=== PATIENT | female | born 1965 | race African-American/Black ===

== ENCOUNTER → 2019-08-19 | Day surgery (SDC) | payer BC, OTHER ==
[~2019-08-19] MED LIST: FENTANYL CITRATE/PF 100MCG/2 ML INJ ONE; GLYCOPYRROLATE INJ 0.2 MG/ML VIAL ONE; HYOSCYAMINE 0.125 MG TAB ONE; LIDOCAINE HCL 2% LOCAL INJ 5 ML SDV VIAL INJ ONE; MIDAZOLAM HCL 5 MG/ML VIAL ONE; PROPOFOL IV EMULSION 10 MG/ML 20 ML VIAL ONE
[2019-08-19 11:25] VITALS: BP 160/91
--- NOTE | 2019-08-19 12:49 | Operative Report ---
DATE OF PROCEDURE: 08/19/2019 SURGEON: Wade Mandel MD PROCEDURE: EGD with biopsies and colonoscopy with polypectomy. INDICATIONS FOR EGD: Upper abdominal pain, bloating, nausea. INDICATIONS FOR COLONOSCOPY: Mass on ovary, colonoscopy to clear colon prior to REHAB ASSISTANT surgery. MEDICATIONS: The patient was done under MAC. Please see anesthesiologist's note. PROCEDURE IN DETAIL: With the patient in left lateral decubitus position, a flexible fiberoptic Olympus gastroscope was introduced into the esophagus under direct visualization without any difficulty. There was some patchy erythema noted in the distal esophagus. A minute nodule was noted at the GE junction that was biopsied. The scope was then advanced with ease into the stomach. Mucosa overlying the antrum and the body revealed some patchy erythema and low-grade to moderate edema. Biopsies were obtained sent to stain for H. pylori. Pylorus was of normal contour and shape. It was intubated with ease and the scope was advanced all the way to the second portion of the duodenum. Biopsies were obtained from the proximal second portion and then duodenal bulb to rule out sprue. The scope was then withdrawn back into the stomach and retroflexed and mucosa overlying the fundus and cardia appeared to be within normal limits. The scope was then straightened out. It was subsequently withdrawn. The patient tolerated the procedure well. IMPRESSION: 1. Distal esophagitis, mild. 2. Minute nodule, GE junction, biopsied. 3. Gastritis, biopsied. Biopsies sent to stain for Helicobacter pylori. 4. Rule out sprue. PLAN: Follow up histology. Initiate Protonix 40 mg one p.o. q.a.m. a.c. The patient was then turned around. After adequate lubrication of the anal canal, a flexible fiberoptic Olympus colonoscope was inserted into the rectum with ease and advanced all the way to the cecum. It was then withdrawn slowly. Mucosa overlying the cecum, ascending colon, and transverse colon appeared to be within normal limits. An approximately 5 mm polyp was removed per hot snare polypectomy from the descending colon. The sigmoid and rectum appeared to be within normal limits. The scope was then retroflexed into the distal rectum. Small internal hemorrhoids were noted none of which was actively bleeding. The scope was then straightened out. It was subsequently withdrawn. The patient tolerated the procedure well. IMPRESSION: 1. Descending colon polyp, hot snare. 2. Internal hemorrhoids, none actively bleeding. PLAN: Follow up histology. Initiate high-fiber, low-fat diet. Initiate high-fiber supplement. The patient might benefit from a followup colonoscopy in 3 to 5 years. Wade Mandel MD [facility] /[id number] cc: Norma Santos MD
== END | disposition home or self-care (01) ==
LOC: ENDO 08:15
PROVIDERS: ATTEND Internal Medicine Gastroenterology
DX: Z12.11 Encounter for screening for malignant neoplasm of colon (principal); D12.4 Benign neoplasm of descending colon; K29.70 Gastritis, unspecified, without bleeding; K29.80 Duodenitis without bleeding; K21.0 Gastro-esophageal reflux disease with esophagitis; K64.8 Other hemorrhoids; N83.8 Other noninflammatory disorders of ovary, fallopian tube and broad ligament; R74.8 Abnormal levels of other serum enzymes; R00.1 Bradycardia, unspecified; Z01.810 Encounter for preprocedural cardiovascular examination; Z01.812 Encounter for preprocedural laboratory examination; Z11.59 Encounter for screening for other viral diseases; Z68.39 Body mass index [BMI] 39.0-39.9, adult
CPT/HCPCS: 43239; 45385; 87635; 93005; J2001; J2250; J2704; J3010; 45378

== ENCOUNTER → 2019-08-22 | Outpatient (CLI) | payer BC ==
--- NOTE | 2019-08-22 13:33 | Diagnostic Imaging Report ---
EXAM: Right upper quadrant abdominal ultrasound INDICATION: Elevated liver enzymes COMPARISON: None. TECHNIQUE: Transverse and longitudinal images of the right upper quadrant abdomen were obtained FINDINGS: Liver: Size: 13.6 cm in the right midclavicular line, normal Appearance: Normal echogenicity, smooth contour Mass: No focal masses Gallbladder: No gallbladder distension, pericholecystic fluid, wall thickening, stone, or reported sonographic Mendez's sign. Gallbladder wall measures 3 mm. Bile Ducts: Intrahepatic Ducts: No dilatation Extrahepatic Ducts: Common bile duct measures 3 mm Pancreas: Visualized portions of the pancreatic head, neck and proximal body are normal. Kidney: The right kidney measures 8.8 cm without evidence of hydronephrosis or stone. Vessels: Aorta: Visualized portions are normal Inferior Vena Cava: Visualized portions are normal Main Portal Vein: 1.0 cm, normal size with hepatopetal flow. Free Fluid: No ascites or pleural effusion IMPRESSION: Unremarkable right upper quadrant ultrasound. Signed by: Chelsea Coyle MD on 08/22/2019 1:30 PM
== END ==
LOC: US 09:24
PROVIDERS: ATTEND Internal Medicine Gastroenterology
DX: R74.8 Abnormal levels of other serum enzymes (principal)
CPT/HCPCS: 76705

== ENCOUNTER → 2019-09-07 | Day surgery (SDC) | payer BC, OTHER ==
[2019-09-02 12:12] LABS: BASOPHILS % 0.1 % (0.0-1.0); EOSINOPHILS # (AUTO) 0.1 (0.0-0.4); EOSINOPHILS % 0.6 % (0.0-6.0); HEMATOCRIT 43.1 % (34.2-44.1); HEMOGLOBIN 14.5 g/dL (12.0-16.0); LYMPHOCYTES # (AUTO) 2.1 (1.0-3.2); LYMPHOCYTES % 27.1 % (18.0-39.1); MEAN CORPUSCULAR HEMOGLOBIN 33.3 pg (28-32); MEAN CORPUSCULAR HGB CONC 33.6 g/dL (31-35); MEAN CORPUSCULAR VOLUME 99.1 fL (81-99); MONOCYTES # (AUTO) 0.6 (0.2-0.8); MONOCYTES % 7.7 % (4.4-11.3); NEUTROPHILS # (AUTO) 5.1 (2.1-6.9); NEUTROPHILS % 64.2 % (38.7-80.0); PLATELET COUNT 221 x10e3/uL (140-360); RED BLOOD COUNT 4.35 x10e6/uL (3.6-5.1); RED CELL DISTRIBUTION WIDTH 11.5 % (11.7-14.4)
[~2019-09-07] MED LIST changes: +ACETAMINOPHEN 1000 MG/100 ML IV ONE; +BUPIVACAINE HCL 0.5% INJ 30 ML VIAL INJ ONE; +DESFLURANE 240 ML BTL INH ONE; +DEXAMETHASONE SOD PHOS INJ 4 MG/ML VIAL ONE; -GLYCOPYRROLATE INJ 0.2 MG/ML VIAL ONE; -HYOSCYAMINE 0.125 MG TAB ONE; +IOPAMIDOL 300MG/ML 50ML INFUS..BTL IV ONE; +KETOROLAC TROMETHAMINE 30 MG/ML VIAL ONE; +LABETALOL HCL 5 MG/ML 20ML VIAL ONE; +LIDOCAINE 1% W/EPINEPHRINE 20 ML VIAL ONE; +METOCLOPRAMIDE HCL 10 MG/2ML VIAL ONE; +MIDAZOLAM HCL 2 MG/2 ML VIAL ONE; -MIDAZOLAM HCL 5 MG/ML VIAL ONE; +ONDANSETRON HCL INJ 2MG/ML 2ML 2 MG/ML VIAL ONE; +ROCURONIUM BROMIDE 10 MG/ML 5ML VIAL IV ONE; +SUGAMMADEX SODIUM 200 MG/2 ML VIAL IV ONE
--- OUTSIDE RECORDS SUMMARY | 2019-09-07 05:44 | XMS REPORT | Clinical Summary ---
Author Author [facility] Organization [facility] Address Unknown Phone Unavailable Care Team Providers Care Outreach Worker Name Role Phone Asked, No Pcp PCP Unavailable Allergies No Known Allergies Medications No known medications Active Problems Not on file Encounters Care Team Description Date Type Specialty Vinay Diaz MD 04/04/2019 Emergency Emergency Medicine Viral Zabala MD Dizziness (Primary Dx); Bradycardia 01/10/2019 Emergency Emergency Medicine 01/10/2019 Travel after 09/06/2018 Social History Date Tobacco Use Types Packs/Day Years Used Never Smoker Smokeless Tobacco: Never Used Drinks/Week oz/Week Comments Alcohol Use No Sex Assigned at Date Recorded Not on file Industry Job Start Date Occupation Not on file Not on file Not on file Travel End Travel History Travel Start No recent travel history available. 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 OPERATOR Weight 162.6 cm (5' 4") 04/04/2019 3:08 PM SHARPLES MACHINE OPERATOR Height 38.96 04/04/2019 3:08 PM SHARPLES MACHINE OPERATOR Body Mass Index Plan of Treatment Health Maintenance Due Date Last Done Comments CERVICAL CANCER SCREENING 1988 BREAST CANCER SCREENING 2017 COLONOSCOPY SCREENING 2017 SHINGLES VACCINES (#1) 2017 INFLUENZA VACCINE 11/19/2019 Procedures Comments Procedure Name Priority Date/Time Associated Diag nosis ECG 12-LEAD STAT 04/04/2019 3:12 PM SHARPLES MACHINE OPERATOR ESTIMATED GFR STAT 01/10/2019 9:26 AM CDT B NATRIURETIC PEPTIDE STAT 01/10/2019 9:26 AM CDT TROPONIN STAT 01/10/2019 9:26 AM CDT LIPASE LEVEL STAT 01/10/2019 9:26 AM CDT HEPATIC FUNCTION PANEL STAT 01/10/2019 9:26 AM CDT BASIC METABOLIC PANEL STAT 01/10/2019 9:26 AM CDT HC COMPLETE BLD COUNT STAT 01/10/2019 W/AUTO DIFF 9:26 AM CDT ECG 12-LEAD STAT 01/10/2019 9:25 AM CDT URINALYSIS SCREEN AND STAT 01/10/2019 MICROSCOPY, WITH REFLEX 9:24 AM CDT TO CULTURE ECG ED PRELIMINARY Routine 01/10/2019 INTERPRETATION 8:49 AM CDT after 09/06/2018 Results * ECG 12 lead (04/04/2019 3:12 PM SHARPLES MACHINE OPERATOR) Only the most recent of 2 results within the time period is included. Ventricular 62 [facility] rate Atrial rate 62 [facility] MD interval 150 [facility] QRSD interval 92 [facility] QT interval 394 [facility] QTC interval 399 [facility] P axis 1 31 [facility] QRS axis 1 74 [facility] T wave axis 43 [facility] EKG impression Normal sinus rhythm with sinus [facility] MU SE arrhythmia-Cannot rule out Anterior infarct (cited on or before 04-APR-2019)-Abnormal ECG-In automated comparison with ECG of 10-JAN-2019 09:25,-No significant change was found- Specimen Narrative Performed At This result has an attachment that is n ot available. Performing Organization Address City/State/Zipcode Ph one Number H MUSE [address] [place] [address] * Estimated GFR (01/10/2019 9:26 AM CDT) [facility] Estimated GFR >=90 mL/min/1.73 m2 [facility] Comment: [facility] G1 >=90 Normal or high G2 60-89 Mildly decreased G3a 45-59 Mildly to moderately decreased G3b 30-44 Moderately to severely decreased G4 15-29 Severely decreased G5 <15 Kidney failure The eGFR was calculated using the Chronic Kidney Disease Epidemiology Collaboration (CKD-EPI) equation. Interpretation is based on recommendations of the National Kidney Foundation-Kidney Disease Outcomes Quality Initiative (NKF-KDOQI) published in 2014. Specimen Plasma specimen Performing Organization Address City/State/Zipcode Ph one Number [facility] OF [address] [place] [address] PATHOLOGY AND GENOMIC MEDICINE [address] * Troponin (01/10/2019 9:26 AM CDT) [facility] Troponin <0.006 0.000 - 0.040 ng/mL [facility] Comment: [facility] changed methodology effective: HOSPITAL 08/24/2018 at 10:00 am The new method has a 99th percentile cutoff of 0.040 ng/mL Specimen Plasma specimen Performing Organization Address City/[facility] Ph one Number [facility] OF [address] [place] [address] PATHOLOGY AND GENOMIC MEDICINE [address] * CBC with platelet and differential (01/10/2019 9:26 AM CDT) [facility] WBC 6.3 4.2 - 11.0 k/uL [facility] RBC 4.27 4.04 - 5.86 m/uL [facility] HGB 14.2 11.5 - 15.3 g/dL [facility] HCT 43.1 34.0 - 45.0 % [facility] MCV 100.9 (H) 80.0 - 98.0 fL [facility] MCH 33.3 27.0 - 34.0 pg [facility] MCHC 32.9 31.5 - 36.5 g/dL [facility] RDW - SD 43.2 37.0 - 51.0 fL [facility] MPV 11.3 (H) 7.4 - 10.4 fL [facility] Platelet count 215 150 - 400 k/uL [facility] Nucleated RBC 0.00 /100 WBC [facility] Neutrophils 66.0 36.0 - 66.0 % [facility] Lymphocytes 27.5 24.0 - 44.0 % [facility] Monocytes 5.5 0.0 - 6.0 % [facility] Eosinophils 0.6 0.0 - 6.0 % [facility] Basophils 0.2 0.0 - 1.2 % [facility] Immature 0.2 0.0 - 1.0 % [facility] granulocytes [facility] Specimen Blood Performing Organization Address City/[facility] Ph one Number [facility] [place] [address] [place] [address] PATHOLOGY AND GENOMIC MEDICINE [address] * B natriuretic peptide (01/10/2019 9:26 AM CDT) BNP 34 0 - 100 pg/mL [facility] Specimen Blood Performing Organization Address City/[facility] Ph one Number [facility] [place] [address] [place] [address] PATHOLOGY AND GENOMIC MEDICINE [address] * Lipase level (01/10/2019 9:26 AM CDT) Lipase 17 13 - 60 U/L [facility] Specimen Plasma specimen Performing Organization Address City/[facility] Ph one Number [facility] [place] [address] [place] [address] PATHOLOGY AND GENOMIC MEDICINE [address] * Hepatic function panel (01/10/2019 9:26 AM CDT) Albumin 3.9 3.5 - 5.0 g/dL [facility] Total bilirubin 0.5 0.2 - 1.2 mg/dL [facility] Bilirubin <0.2 0.0 - 0.4 mg/dL [facility] direct [facility] Alkaline 119 (H) 0 - 104 U/L [facility] phosphatase [facility] Protein 7.6 6.3 - 8.3 g/dL [facility] ALT 81 (H) 5 - 50 U/L [facility] AST 63 (H) 10 - 35 U/L [facility] Specimen Plasma specimen Performing Organization Address City/[facility] Ph one Number [facility] OF [address] [place] [address] PATHOLOGY AND GENOMIC MEDICINE [facility] [address] * Basic metabolic panel (01/10/2019 9:26 AM CDT) Sodium 141 135 - 150 mEq/L [facility] Potassium 4.0 3.5 - 5.0 mEq/L [facility] Chloride 104 98 - 112 mEq/L [facility] CO2 28 24 - 31 mmol/L [facility] Anion gap 9@ANIO 7 - 15 mEq/L [facility] BUN 11 7 - 18 mg/dL [facility] Creatinine 0.70 0.50 - 0.90 mg/dL [facility] Glucose 101 (H) 65 - 100 mg/dL [facility] Calcium 9.6 8.3 - 10.2 mg/dL [facility] Specimen Plasma specimen Performing Organization Address City/State/[facility] Ph one Number [facility] OF [address] [place] [address] PATHOLOGY AND GENOMIC MEDICINE [facility] [address] * Urinalysis screen and microscopy, with reflex to culture (01/10/2019 9:24 AM CDT) Specimen site Clean catch [facility] Color, UA Straw [facility] Appearance, UA Clear [facility] Specific 1.008 1.001 - 1.035 [facility] gravity, UA [facility] pH, UA 7.0 5.0 - 8.5 [facility] Protein, UA Negative Negative [facility] Glucose, UA Negative Negative [facility] Ketones, UA Negative Negative [facility] Bilirubin, UA Negative Negative [facility] Blood, UA Negative Negative [facility] Nitrite, UA Negative Negative [facility] Urobilinogen, Negative <2.0 [facility] Leukocyte Negative Negative [facility] esterase, UA [facility] Epithelial Many /HPF [facility] cells, [facility] WBC, UA 1 0 - 5 /HPF [facility] RBC, UA <1 0 - 5 /HPF [facility] Bacteria, UA Trace None seen [facility] Yeast, UA None seen [facility] Yeast with None seen [facility] Specimen Urine Performing Organization Address City/State/[facility] Ph one Number [facility] OF [address] [place] [address] PATHOLOGY AND GENOMIC MEDICINE [address] * ECG ED Preliminary Interpretation - Not an Order (01/10/2019 8:49 AM CDT) Narrative Performed At Viral Zabala MD 019 11:10 AM ECG ED Preliminary Interpretation - Not an Order Performed by: Viral Zabala M D Authorized by: Viral Zabala MD ECG reviewed by ED Physician in the abs ence of a compliance director: yes Interpretation: Interpretation: normal Rate: ECG rate: 48 ECG rate assessment: bradycardic Rhythm: Rhythm: sinus bradycardia Ectopy: Ectopy: none QRS: QRS axis: Normal QRS intervals: Normal Conduction: Conduction: normal ST segments: ST segments: Normal T waves: T waves: normal after 09/06/2018 Insurance Type Payer Benefit Subscriber ID Effective Phone Address Plan / Dates Group PPO BCBS BCBS OUT xxxxxxxxxxxx [id number] OF STATE resent Advance Directives For more information, please contact: [phone] 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
--- OUTSIDE RECORDS SUMMARY | 2019-09-07 05:45 | XMS REPORT ---
Author Author [facility] Organization [facility] Address [address] [place] [address] Phone Unavailable Care Team Providers Care Folded Towel Machine Operator Name Role Phone Asked, Pcp No PCP Unavailable JAY KIMBALL Attphys Unavailable Diaz MD, Benigno Mclean Attphys [phone] Vj SOLORIO, Edwin Stratton Attphys [phone] Payers Payer Name Policy Type Policy Number Effective Date Expiration Date S ource BCBSBCBS OUT OF STATExxxxxxxxxxxx2018-PresentPPO xxxxxxxxxxxx 2018 00:00:00 Will Armando Problems This patient has no known problems. Allergies, Adverse Reactions, Alerts This patient has no known allergies or adverse reactions. Social History Social Habit Start Date Stop Date Quantity Comments Source Sex Assigned At [facility] Alcohol intake 2019-01-10 00:00:00 2019-01-10 00:00:00 Current non-drinker of alcohol (finding) Will Armando Smoking Status Start Date Stop Date Source [facility] Medications This patient has no known medications. Vital Signs Vital Name Observation Time Observation Value Comments Source Systolic blood pressure 2019-04-04 21:08:54 145 mm[Hg] Will Armando Diastolic blood pressure 2019-04-04 21:08:54 84 mm[Hg] Will Armando Heart rate 2019-04-04 21:08:54 75 /min Will Armando Body temperature 2019-04-04 21:08:54 36 [place] [facility] Respiratory rate 2019-04-04 21:08:54 24 /min [place] [facility] Oxygen saturation in Arterial blood by Pulse oximetry 2018-04 21:08:54 98 /min Will Armando Body height 2019-04-04 21:08:00 162.6 cm Will Armando Body weight 2019-04-04 21:08:00 102.967 kg Will Armando BMI 2019-04-04 21:08:00 38.96 kg/m2 Will Armando Procedures Procedure Date / Time Performed Performing Clinician Sourc e ECG 12-LEAD 2019-04-04 21:12:54 Vinay Diaz HC COMPLETE BLD COUNT W/AUTO DIFF 2019-01-10 14:26:00 Viral Zabala BASIC METABOLIC PANEL 2019-01-10 14:26:00 Viral Zabala HEPATIC FUNCTION PANEL 2019-01-10 14:26:00 Viral Zabala l Will Armando LIPASE LEVEL 2019-01-10 14:26:00 Viral Zabala on [facility] TROPONIN 2019-01-10 14:26:00 Viral Zabala on [facility] B NATRIURETIC PEPTIDE 2019-01-10 14:26:00 Viral Zabala ESTIMATED GFR 2019-01-10 14:26:00 Viral Zabala on [facility] ECG 12-LEAD 2019-01-10 14:25:27 Viral Zabala on [facility] URINALYSIS SCREEN AND MICROSCOPY, WITH REFLEX TO CULTURE 201 12-27-22 14:24:00 Viral Zabala ECG ED PRELIMINARY INTERPRETATION 2019-01-10 13:49:30 Viral Zabala Plan of Care Planned Activity Planned Date Details Comments Source Future Scheduled Test 2019-11-19 00:00:00 INFLUENZA VACCINE [code = INFLUENZA VACCINE] [facility] Future Scheduled Test 2017 00:00:00 BREAST CANCER SCRE ENING [code = BREAST CANCER SCREENING] [facility] Future Scheduled Test 2017 00:00:00 COLONOSCOPY SCREEN ING [code = COLONOSCOPY SCREENING] [facility] Future Scheduled Test 2017 00:00:00 SHINGLES VACCINES (#1) [code = SHINGLES VACCINES (#1)] [facility] 00:00:00 Screening for bakari gnant neoplasm of cervix (procedure) [code = 039948577] Will Valles t Results Test Description Test Time Test Comments Results Result Comments Source US LIVER 2019-08-22 13:29:00 [facility] [address] [address] Patient Name: BUCKY ANDREA MR #: [id number] : 1965 Age/Sex: 54/F Req #: [id number] Adm Physician: Ordered by: JAY KIMBALL MD Report #: [id number] Location: Room/Bed: Procedure: [id number] US/US LIVER Exam Date: 08/22/19 Exam Time: 1009 REPORT STATUS: Signed EXAM: Right upper quadrant abdominal ultrasound INDICATION: Elevated liver enzymes COMPARISON: None. TECHNIQUE: Transverse and longitudinal images of the right upper quadrant abdomen were obtained FINDINGS: Liver: Size: 13.6 cm in the right midclavicular line, normal Appearance: Normal echogenicity, smooth contour Mass: No focal masses Gallbladder: No gallbladder distension, pericholecystic fluid, wall thickening, stone, or reported sonographic Mendez's sign. Gallbladder wall measures 3 mm. Bile Ducts: Intrahepatic Ducts: No dilatation Extrahepatic Ducts: Common bile duct measures 3 mm Pancreas: Visualized portions of the pancreatic head, neck and proximal body are normal. Kidney: The right kidney measures 8.8 cm without evidence of hydronephrosis or stone. Vessels: Aorta: Visualized portions are normal Inferior Vena Cava: Visualized portions are normal Main Portal Vein: 1.0 cm, normal size with hepatopetal flow. Free Fluid: No ascites or pleural effusion IMPRESSION: Unremarkable right upper quadrant ultrasound. Signed by: Jorge A Sellers MD on 08/22/2019 1:30 PM Dictated By: JORGE A SELLERS MD 1330 Transcribed By: VALDEMAR on 08/22/19 1330 COPY TO: JAY KIMBALL MD ECG 12 lead 2019-04-06 00:16:22 Test Item Ventricular rate (test code = 253) 62 Atrial rate (test code = 255) 62 MT interval (test code = 266) 150 QRSD interval (test code = 260) 92 QT interval (test code = 264) 394 QTC interval (test code = 265) 399 P axis 1 (test code = 267) 31 QRS axis 1 (test code = 268) 74 T wave axis (test code = 270) 43 EKG impression (test code = 273) Normal sinus rhythm w ith sinus arrhythmia- Cannot rule out Anterior infarct (cited on or before 04-APR-2019)-Abnormal ECG- In automated comparison with ECG of 10-JAN-2019 09:25,-No significant change was found- [facility]inal[facility] screen and microscopy, with reflex to culture 2019-01-10 16:18:39* Test Item Value Reference Range Interpretation Comments Specimen site (test code = 7675195) Clean catch Color, UA (test code = 5778-6) Straw Appearance, UA (test code = 5767-9) Clear Specific gravity, UA (test code = 5811-5) 1.008 1.001-1.035 pH, UA (test code = 5803-2) 7.0 5.0-8.5 Protein, UA (test code = 29045-8) Negative Negative Glucose, UA (test code = 80358-6) Negative Negative Ketones, UA (test code = 2514-8) Negative Negative Bilirubin, UA (test code = 5770-3) Negative Negative Blood, UA (test code = 5794-3) Negative Negative Nitrite, UA (test code = 5802-4) Negative Negative Urobilinogen, UA (test code = 74876-0) Negative <2.0 Leukocyte esterase, UA (test code = 5799-2) Negative Negative Epithelial cells, UA (test code = 5787-7) Many /HPF WBC, UA (test code = 5821-4) 1 0- 5 /HPF RBC, UA (test code = 44328-1) <1 0- 5 /HPF Bacteria, UA (test code = 91839-6) Trace None seen Yeast, UA (test code = 35852-5) None seen Yeast with pseudohyphae, UA (test code = 09300-7) None seen [facility] nat[facility]tic [id number] 15:14:38* Test Item Value Reference Range Interpretation Comments BNP (test code = 84198-7) 34 pg/mL 0-100 [id number] 15:14:07* Test Item Value Reference Range Interpretation Comments Troponin (test code = 92687-7) <0.006 0-0.04 [facility] Firework changed methodology effective: 08/24/2018 at 10:00 amThe new method has a 99th percentile cutoff of 0.040 ng/mL [facility] CenterBasic metabolic [id number] 15:08:02* Test Item Value Reference Range Interpretation Comments Sodium (test code = 2951-2) 141 135- 150 mEq/L Potassium (test code = 2823-3) 4.0 3.5- 5.0 mEq/L Chloride (test code = 5-0) 104 98- 112 mEq/L CO2 (test code = 2027-9) 28 mmol/L 24-31 Anion gap (test code = 39787-3) 9@ANIO 7- 15 mEq/L BUN (test code = 3094-0) 11 mg/dL 7-18 Creatinine (test code = 2160-0) 0.70 mg/dL 0.5-0.9 Glucose (test code = 2345-7) 101 mg/dL 65-100 H Calcium (test code = 65714-2) 9.6 mg/dL 8.3-10.2 Lab Interpretation (test code = 37811-4) Abnormal [facility] CenterHepatic function [id number] 15:08:02* Test Item Value Reference Range Interpretation Comments Albumin (test code = 1751-7) 3.9 g/dL 3.5-5 Total bilirubin (test code = 1974-2) 0.5 mg/dL 0.2-1.2 Bilirubin direct (test code = 1967-7) <0.2 0-0.4 Alkaline phosphatase (test code = 6768-6) 119 U/L 0-104 H Protein (test code = 2885-2) 7.6 g/dL 6.3-8.3 ALT (test code = 1742-6) 81 U/L 5-50 H AST (test code = 1920-8) 63 U/L 10-35 H Lab Interpretation (test code = 71275-2) Abnormal [facility] MethodistLipase [id number] 15:08:02* Test Item Value Reference Range Interpretation Comments Lipase (test code = 3040-3) 17 U/L 13-60 [facility] MethodistEstimated [id number] 15:08:00* Test Item Value Reference Range Interpretation Comments Estimated GFR (test code = 5488) >=90 mL/min/1.73 m2 Catergory Units InterpretationG1 >=90 Normal or highG2 60-89 Mildly excloxejyX2j 45-59 Mildly to moderately xkmmmawzpT6p 30-44 Moderately to severely decreasedG4 15-29 Severely decreasedG5 <15 Kidney failureThe eGFR was calculated using the Chronic Kidney Disease Epidemiology Collaboration (CKD-EPI) equation. Interpretation is based on recommendations of the National Kidney Foundation-Kidney Disease Outcomes Quality Initiative (NKF-KDOQI) published in 2014. [facility] MethodistCBC with platelet and znrzmbxycpsm1084-78-82 14:48:44* Test Item Value Reference Range Interpretation Comments WBC (test code = 49159-8) 6.3 4.2- 11.0 k/uL RBC (test code = 48028-3) 4.27 m/uL 4.04-5.86 HGB (test code = 718-7) 14.2 g/dL 11.5-15.3 HCT (test code = 4544-3) 43.1 % 34-45 MCV (test code = 787-2) 100.9 fL 80-98 H MCH (test code = 785-6) 33.3 pg 27-34 MCHC (test code = 786-4) 32.9 g/dL 31.5-36.5 RDW - SD (test code = 41970-0) 43.2 fL 37-51 MPV (test code = 85031-0) 11.3 fL 7.4-10.4 H Platelet count (test code = 24676-7) 215 150- 400 k/uL Nucleated RBC (test code = 94955-3) 0.00 /100 WBC Neutrophils (test code = 91579-7) 66.0 % 36-66 Lymphocytes (test code = 19503-4) 27.5 % 24-44 Monocytes (test code = 93456-9) 5.5 % 0-6 Eosinophils (test code = 22406-5) 0.6 % 0-6 Basophils (test code = 07084-9) 0.2 % 0-1.2 Immature granulocytes (test code = 22280-0) 0.2 % 0-1 Lab Interpretation (test code = 38440-3) Abnormal [facility] Preliminary Interpretation - Not an [id number] 13:49:30GeViral jung MD 01/11/2019 11:10 [facility] Preliminary Interpretation - Not an OrderPerformed by: Viral Zabala MDAuthorized by: Viral Zabala MD ECG reviewed by ED Physician in the absence of a cyber defense analyst: yes Interpretation: Interpretation: normal Rate: ECG rate: 48 ECG rate assessment: bradycardic Rhythm: Rhythm: sinus bradycardia Ectopy: Ectopy: none QRS: QRS axis: Normal QRS intervals: NormalConduction: Conduction: normal ST segments: ST segments: NormalT waves: T waves: normal Will Armando
--- NOTE | 2019-09-07 10:18 | Operative Report ---
DATE OF PROCEDURE: 09/07/2019 SURGEON: Fausto Gann MD SERVICE: Urology. CLINICAL INDICATION NOTE: This is a 54-year-old patient, was brought by Dr. Santos for removal of ovarian mass. The patient does have minimal voiding symptoms. There is some frequency and minimal incontinence. The patient is brought by me for cystoscopy retrograde and placement of ureteral catheters bilaterally. Procedure was discussed with the patient. Potential benefit and complication discussed, explained and accepted. DESCRIPTION OF PROCEDURE AND FINDINGS: After proper level of anesthesia was achieved, the patient was placed in lithotomy position. Urethra appeared to be quite narrow, had to be dilated. Following this, the scope was inserted. Inflammatory changes are present in the bladder and no foreign body seen. Both ureteral orifices are in the normal position. Open-end catheter was inserted bilaterally and retrograde ureteropyelograms were done. No hydronephrosis was noticed. Drainage was prompt. Following this, ureteral catheters were reinserted and advanced up to the kidney on both sides. A 16-Romanian Hicks catheter was then inserted and the ureteral catheter were introduced into the collecting bag. Following this, pelvic exam was done under anesthesia and no definitive masses could be palpated in the midline or adnexa. Fausto Gann MD IA/MODL /[id number]
--- NOTE | 2019-09-07 10:46 | Diagnostic Imaging Report ---
OR Fluoroscopy: IMPRESSION: Fluoroscopy service provided in the OR. Interpretation not requested. Signed by: Pedro Nieves MD on 09/07/2019 10:43 AM
[2019-09-07 12:20] VITALS: BP 151/86
--- NOTE | 2019-09-07 17:05 | Operative Report ---
DATE OF PROCEDURE: SURGEON: Norma Santos MD PREOPERATIVE DIAGNOSES: Pelvic pain, adnexal mass. POSTOPERATIVE DIAGNOSES: 1. Pelvic pain, adnexal mass. 2. Torsion of right ovarian mass. PROCEDURE: Laparoscopy single port, right oophorectomy, and division of adhesions. PASSPORT APPLICATION EXAMINER: COMPLICATIONS: None. ESTIMATED BLOOD LOSS: Minimal. DESCRIPTION OF PROCEDURE: The patient was taken to the OR. General anesthesia was induced. She was prepped and draped in a normal sterile fashion, placed in dorsal lithotomy position. After examination under anesthesia and stents placement by Dr. Gann, the patient was placed in supine position. Two Allis clamps were applied on the umbilicus to mallory the umbilicus. Infraumbilical skin incision was made with a scalpel and taken all the way down to the fascia until about 2-1/2 cm in length. The fascia was held with Tyler's, opened, and using Holley method for laparoscopy, GelPOINT was inserted and gel cover was placed on the GelPOINT and the abdomen was inflated with carbon dioxide gas. The patient was placed in Trendelenburg position. Clear serous fluid was seen in the pelvis and was suctioned out and sent for cytology. Adhesions between the omentum and the right ovary were noted. Left ovary looked normal and absent of uterus. No evidence of metastasis or omental cakes. Liver looked grossly normal using the laparoscope. Following this, using the single port, omentum was held with a grasper and using the LigaSure, the adhesions were from the ovary. Infundibulopelvic ligament was ligated using the LigaSure and . At that stage, the right adnexa was free and a 15 mm port was passed through the GelPOINT and a large EndoCatch bag was inserted, opened with the help of the assistant in nursing. Specimen was inserted completely inside the bag. The GelPOINT cap was removed and bag was brought outside the wound. At that stage, the mass was big to be removed through the umbilical incision and piecemeal removal of the specimen inside the EndoCatch bag was performed without difficulty. The entire mass was removed and the back was brought outside the abdomen, intact. Cap was placed and the abdomen was inflated with carbon dioxide gas. Hemostasis was found to be adequate. Suction irrigation of peritoneal cavity with warm saline. Following this, abdomen was deflated again and rectus fascia at the umbilicus was approximated using Vicryl #1 suture. Skin was closed with subcuticular 4-0 Vicryl and Dermabond applied. Marcaine with epinephrine was injected around the umbilicus. The patient tolerated the procedure well. Laps and instrument counts were correct x2. Norma Santos MD DD/LENCHO /[id number]
== END | disposition home or self-care (01) ==
LOC: OR 05:42
PROVIDERS: ATTEND Obstetrics & Gynecology
DX: R19.09 Other intra-abdominal and pelvic swelling, mass and lump (principal); N83.511 Torsion of right ovary and ovarian pedicle; N36.8 Other specified disorders of urethra; R32 Unspecified urinary incontinence; N32.89 Other specified disorders of bladder; R94.5 Abnormal results of liver function studies; Z01.812 Encounter for preprocedural laboratory examination; Z11.59 Encounter for screening for other viral diseases
CPT/HCPCS: 36415; 52281; 58661; 74420; 85025; 86304; 87635; 88112; 88305; 88307; 88313; 88342; C1758; J0131; J1100; J1885; J2001; J2250; J2405; J2704; J2765; J3010; J3490; Q9967; 88304